=== PATIENT | female | born 1970 | race Caucasian/White ===

== ENCOUNTER → 2019-09-26 | Outpatient (CLI) | payer OTHER ==
--- NOTE | 2019-10-09 09:49 | MM ---
Reason for exam: screening (asymptomatic). Last mammogram was performed 2 years and 3 months ago. History: Patient is postmenopausal. Benign excisional biopsy of the right breast, 2013. Took hormonal contraceptives for 10 years. Physical Findings: A clinical breast exam by your physician is recommended on an annual basis and results should be correlated with mammographic findings. MG Screening Mammo w CAD Bilateral CC and MLO view(s) were taken. Prior study comparison: June 20, 2017, mammogram, performed at [facility]. July 19, 2014, mammogram, performed at [facility]. The breast tissue is heterogeneously dense. This may lower the sensitivity of mammography. There are benign appearing round calcifications bilaterally. Previous mammotome biopsy in the right breast. There is no discrete abnormality. ASSESSMENT: Benign, BI-RAD 2 RECOMMENDATION: Routine screening mammogram of both breasts in 1 year.
== END | disposition home or self-care (01) ==
LOC: RADMAMWWP 15:26
PROVIDERS: ATTEND Obstetrics & Gynecology
DX: Z12.31 Encounter for screening mammogram for malignant neoplasm of breast (principal)
CPT/HCPCS: 77067

== ENCOUNTER 2021-11-13 10:56 | Day surgery (SDC) | payer OTHER ==
[2021-11-11 12:02] VITALS: BMI 25.1
[~2021-11-13 10:56] MED LIST: ALBUTEROL NEB (CONC) 2.5 MG/0.5 ML INHALATION ONE; LACTATED RINGERS 1,000 ML IV SCH; LIDOCAINE 2% (PF) 20 MG/ML 5 ML VIAL INHALATION ONE; LIDOCAINE VISCOUS 300 MG/15 ML CUP MUCOUS MEM ONE; SODIUM CHLORIDE 0.9% 1,000 ML IV SCH
--- NOTE | 2021-11-13 12:16 | CT ---
EXAMINATION TYPE: CT Chest randa Treadwell Protocol DATE OF EXAM: 11/13/2021 COMPARISON: 10/18/2021 HISTORY: NAVIGATIONAL BRONCHOSCOPY. CT DLP: 484 mGycm Automated exposure control for dose reduction was used. FINDINGS: There is a 2.5 x 2.5 cm right upper lobe lung mass. Margins are spiculated and highly suggestive of m alignant adjacent groundglass changes may represent reactive pneumonitis. Subpleural 8 mm nodule post erior segment right upper lobe may be inflammatory. Additional subpleural nodule left upper lobe alexis uring 8 mm also more likely postinflammatory. Appears to extend into an area of consolidation left alberto ng base. No pleural effusion. No pneumothorax. Previously noted pulmonary emboli are not going to be seen well by noncontrast technique. Heart is en larged. 2.6 x 1.9 cm right paratracheal lymph node again noted. Subcarinal fullness also suggested. M easures approximately 2 cm in short axis. Heart size is stable there is no sizable pericardial effusion. Right ventricular dilation suggested. Hypertrophic and degenerative changes of the spine. No definite osseous defects are seen. IMPRESSION: 1. 2.5 cm right upper lobe mass highly suspicious for malignancy with associated adenopathy. 2. Subpleural nodularity most likely is inflammatory related with CT scan as clinically warranted.
[2021-11-13] MEDS ORDERED: fentaNYL (PF) 50 MCG/ML 2 ML AMP ONE (12:30)
[2021-11-13] MEDS ORDERED: ONDANSETRON 4 MG/2 ML VIAL ONE (12:30)
[2021-11-13] MEDS ORDERED: ROCURONIUM 10 MG/ML (5 ML VIAL) IV ONE (12:30)
[2021-11-13] MEDS ORDERED: LIDOCAINE 1% INJ 10MG/ML (20 ML MDV) ONE (12:30)
[2021-11-13] MEDS ORDERED: GLYCOPYRROLATE 0.2 MG/ML 2 ML VIAL ONE (12:30)
[2021-11-13] MEDS ORDERED: PROPOFOL 10 MG/ML 20 ML VIAL IV ONE (12:30)
[2021-11-13] MEDS ORDERED: MIDAZOLAM 2 MG/2 ML VIAL ONE (12:30)
[2021-11-13] MEDS ORDERED: NEOSTIGMINE 1 MG/ML 10 ML VIAL ONE (12:30)
--- NOTE | 2021-11-13 13:21 | P.PCN ---
Date of Procedure: 11/13/21 Operative Findings: Operative Findings: 1 right upper lobe mass 2 Right hilar / subcarinal lymphadenopathy Postoperative Diagnosis: 1 right upper lobe mass 2 Right hilar/subcarinal lymphadenopathy Procedure(s) Performed: 1 flexible bronchoscopy, airway inspection 2 navigation bronchoscopy, transbronchial biopsy and transbronchial brushing and transbronchial needle aspirate of a right upper lobe mass, bronchial alveolar lavage of the right upper lobe 2 endoscopic ultrasound (EBUS) 3 transbronchial needle aspirate of station station 7 Surgeon: Charisma Roca Song Lyricist #1: Shelli Christopher Estimated Blood Loss (ml): 5 cc Pathology: TBBX of the right upper lobe, transbronchial needle aspirate of sta tion 7 Condition: stable Disposition: same day Operative Findings: The patient had a preoperative computed tomography scan of the chest using the Veran protocol. The CAT scan images were reviewed. The right upper lobe opacity was identified it was mapped appropriately. The CAT scan images are uploaded into a USB and then into the [employer] tower. After obtaining the consent the patient was taken to the OR suite he was intubated and put on mechanical ventilation by anesthesia then the scope was advanced to the ET tube until the Trachea was seen and it was normal and then the susana appears normal then the scope advanced to the left main and JAMEL LB1- LB3 were seen and no endobronchial lesions were seen then the scope advanced to the lingula and the LB4 and LB5 were seen and no endobronchial lesions were seen the scope retracted and advanced to the left lower lobes LB6 to LB12 were seen one by one and no endobronchial lesions, then the scope was retracted back to the susana and advanced to the Right main and RUL RB1 and RB2 and RB3 were seen one by one and no endobronchial lesions were seen the scope, however, the segment of the posterior right upper lobe bronchus were atelectatic and narrowed and extrinsically compressed. The bronchoscope was then retracted and advanced to the BI and RML RB4 and RB5 were seen and no endobronchial lesions were seen then it was retracted and advanced to the RLL RB6 to RB12 were seen one by one and no endobronchial lesions. Navigation bronchoscopy was performed. The main susana and the secondary susana on the left were used as the reference points and appropriate calibration was done. Following that, using a navigation guidance , the bronchoscope was advanced to the right upper lobe posterior segment and various transbronchial biopsies of the right upper lobe opacity was done without any complications. Minimal endobronchial bleeding was encountered. Following that, and navigation guided transbronchial brushing and needle aspirate of the right upper lobe mass was done. Subsequently, a bronchioalveolar for lavage (BAL) of the right upper lobe O2 sat was done. A total of 80 mL of fluid was infused and 20 mL was suctioned back and this will be sent for cytology and microbial cultures. Then EBUS was used and the lymph nodes were examined. Direct measurement of the mediastinal lymph nodes revealed station 4R lymph node measuring 17x 18 mm in size, station 10 R lymph node measuring 14 x 11 mm in size and a subcarinal lymph node station 7 measuring 34 x 27 mm in size. On the EBUS guidance, transbronchial needle aspirate of the subcarinal lymph node station 7 was done with a total of 5 passes. The adequacy of the samples was confirmed by pathology at the bedside. No major bleeding and the scope was removed and taken out in total the patient was send to the floor in stable condition. The adequacy of the temporal confirmed by pathology at the bedside and the rest of the samples were sent and the cell block. The bronchoscope was removed, the patient will be extubated and then transferred to recovery. A follow-up chest x-ray will be done in recovery.
[2021-11-13] MEDS ORDERED: LACTATED RINGERS 1,000 ML IV ONE ×2 (13:26)
[2021-11-13 13:34] VITALS: TEMP 98.1
[2021-11-13 13:43] VITALS: RESP 16
--- NOTE | 2021-11-13 14:00 | XR ---
EXAMINATION TYPE: XR chest 1V DATE OF EXAM: 11/13/2021 COMPARISON: CT thorax October 18, 2021 HISTORY: Postbronchoscopy. TECHNIQUE: Single AP portable frontal upright view of the chest is obtained. FINDINGS: There is background chronic emphysematous change with persistent right upper lung mass. No pneumothorax seen after bronchoscopy. Left lung is clear. The cardiac silhouette size remains withi n normal limits. Underlying scoliosis redemonstrated. There is a new IVC filter over the right L3 lev el partially imaged. IMPRESSION: As above
[2021-11-13 14:23] VITALS: BP 113/73; PULSE 90
[2021-11-13 23:28] LABS: Appearance,BF Bloody
== END 2021-11-13 14:32 | disposition home or self-care (01) ==
LOC: ORWHC2ENDO 10:56
PROVIDERS: ATTEND Internal Medicine Critical Care Medicine
DX: R59.1 Generalized enlarged lymph nodes (principal); Z86.73 Personal history of transient ischemic attack (TIA), and cerebral infarction without residual deficits; Z79.01 Long term (current) use of anticoagulants
CPT/HCPCS: 31625; 31627; 31652; 89050; 87252; 87070; 87205; 87116; 87102; 87206; 71045; 71250; J2250; J2710; J2405; J2001; J3010; J2704; 87496; 87498; 87502; 87529; 87634; 87798

== ENCOUNTER → 2022-02-22 | Outpatient (CLI) | payer OTHER ==
--- NOTE | 2022-02-22 12:58 | CT ---
EXAMINATION TYPE: CT chest w con DATE OF EXAM: 02/22/2022 COMPARISON: 11/25/2021 HISTORY: 51-year-old female Malignant neoplasm of right upper lobe. TECHNIQUE: Contiguous axial scanning of the chest after the administration of 70ml mL of Isovue 300. Coronal/sagittal reconstructions performed. CT DLP: 146.5mGycm. Automatic exposure control utilized for a dose reduction. FINDINGS: Heart normal size without pericardial effusion. No flattening of the interventricular septum or reflu x of contrast into the hepatic veins. Aorta normal caliber with bovine configuration to the aortic arch. No thoracic lymphadenopathy by CT size criteria. The previous subcarinal and right paratracheal lymph adenopathy has resolved. Previous right supraclavicular adenopathy and right anterior mediastinal sof t tissue has resolved. However, there are new visualized multiple segmental branch pulmonary emboli to the right lower lobe and one to the segmental branch of the left lower lobe. Patient's posterior right upper lobe mass is 2.2 cm versus 3.0 cm, previously. Some strandy and patch y subpleural areas of probable atelectasis are noted. No pleural effusion. Visualized upper abdomen shows no gross abnormality. Bones: Some degenerative change near the thoracolumbar junction. Anterior endplate spondylosis upper thoracic spine with accentuated upper thoracic kyphosis. IMPRESSION: 1. Interval development of acute pulmonary emboli to multiple segmental branches of the right lower l obe. At least one segmental branch embolus to the left lower lobe. No evidence for right heart strain . Mild overall burden. 2. Interval treatment response. The patient's right upper lobe mass is smaller at 2.2 cm versus 3.0 c m, previously. Interval resolution of the previous mediastinal and right supraclavicular lymphadenopa thy. Findings called to Dr. Kelly at 12:50 PM. We are informed that the patient has known PEs per a recent outside CT exam and is currently on treatment.
== END | disposition home or self-care (01) ==
LOC: RADCTMAIN 10:06
PROVIDERS: ATTEND Internal Medicine Hematology & Oncology
DX: C34.11 Malignant neoplasm of upper lobe, right bronchus or lung (principal)
CPT/HCPCS: 82565; 84520; 71260; 36415; Q9967

== ENCOUNTER → 2022-07-16 | Outpatient (CLI) | payer OTHER ==
--- NOTE | 2022-07-19 06:52 | PE ---
EXAMINATION TYPE: PET CT fusion skull to thigh DATE OF EXAM: 07/16/2022 COMPARISON: Outside PET/CT November 25, 2021 HISTORY: Lung cancer progress study. Originally diagnosed in October completed radiation treatment in [facility] and chemotherapy in January. TECHNIQUE: Following the intravenous administration of 8.63 mCi of F-18 FDG, whole body images are p erformed from the skull base to the midthigh. Images are reviewed on the computer in the coronal, ax ial, and sagittal planes. Reconstructed rotating images are created on independent workstation and r eviewed on the computer. A localization and attenuation correction CT is performed in conjunction w ith the PET scan. Blood glucose level equals 82. SCAN: Subsequent Scan FINDINGS: SKULL BASE AND NECK: Mild residual abnormal hypermetabolic uptake corresponding to prior enlarged hy permetabolic lymph node right neck at level of thyroid gland axial image 58. Subcentimeter lymph node now seen. Max SUV is 2.42 versus 4.81 stated on prior outside report. No new areas of abnormal hypermetabolic uptake. CHEST, MEDIASTINUM, AND HILAR REGION: There are areas of new consolidation with air bronchograms exte nding from the right hilum superiorly and inferiorly. Mild hypermetabolic uptake along the superior p ortion is seen, max SUV is 3.93 on axial image 65. Post inflammatory response should be considered. A cute infectious processes would be favored given times since most recent treatment. Peripheral reticulated hypermetabolic mass in the right upper lobe now not clearly identified on curr ent study. No abnormal enlarged or hypermetabolic right paratracheal or subcarinal or right hilar lym ph nodes on current study. No new areas of abnormal hypermetabolic uptake. ABDOMEN AND PELVIS: No new areas of abnormal hypermetabolic uptake. OSSEOUS STRUCTURES: No new areas of abnormal hypermetabolic uptake. OTHER CT: Some new dependent fluid right maxillary sinus axial image 23, correlate clinically to excl ude acute maxillary sinusitis. Gallbladder has distended margins. Infrarenal IVC filter is redemonstrated. Levoconvex scoliosis in t he lumbar spine again seen. IMPRESSION: Marked positive suspected complete positive treatment response as detailed above. Possibl e new acute infectious process versus posttreatment response right mid lung extending superiorly and anteriorly.
== END | disposition home or self-care (01) ==
LOC: RADPETMAIN 10:57
PROVIDERS: ATTEND Internal Medicine Hematology & Oncology
DX: C34.11 Malignant neoplasm of upper lobe, right bronchus or lung (principal); Z92.3 Personal history of irradiation
CPT/HCPCS: 78815; A9552

== ENCOUNTER → 2022-10-13 | Outpatient (CLI) | payer BC ==
--- NOTE | 2022-10-13 15:17 | USB ---
Reason for Exam: Additional evaluation requested from abnormal screening. Patient History: Menarche at age 13. First Full-Term at age 28. Postmenopausal. Patient used Hormonal Contraceptives for 10 years. 2013, Benign Excisional Biopsy on the right side. Risk Values: Sofia 5 year model risk: 1.3%. NCI Lifetime model risk: 10.1%. Technique: Method: Whole Breast Handheld. Prior Study Comparison: 06/20/2017 Screening Mammogram, [facility]. 09/26/2019 Bilateral Screening Mammogram, [facility]. 10/11/2022 Bilateral MG screening mammo w CAD, [facility]. Findings: The whole breast of both breasts, the axilla of both breasts and the retroareolar of both breasts were scanned. A complete US of all four quadrants of both breasts, axilla, and retro-areolar region were reviewed. Dense tissue is present throughout. No solid or cystic masses are identified. No axillary lymphadenopathy. Overall Assessment: Suspicious, BI-RAD 4 Management: Stereotactic Core Biopsy of the right breast. Progressively increasing upper outer quadrant amorphous calcifications. Note that these are bilateral calcifications. Unilateral biopsy can be performed given the similar morphology on both sides. Results were given to the patient verbally at the time of exam. Electronically signed and approved by: Kacie Golden M.D. Radiologist
--- NOTE | 2022-10-13 15:20 | MM ---
Reason for Exam: Additional evaluation requested from abnormal screening. Last screening mammogram was performed less than 1 month ago. Patient History: Menarche at age 13. First Full-Term at age 28. Postmenopausal. Patient used Hormonal Contraceptives for 10 years. 2013, Benign Excisional Biopsy on the right side. Risk Values: Sofia 5 year model risk: 1.3%. NCI Lifetime model risk: 10.1%. Prior Study Comparison: 06/20/2017 Screening Mammogram, [facility]. 09/26/2019 Bilateral Screening Mammogram, [facility]. 10/11/2022 Bilateral MG screening mammo w CAD, [facility]. Tissue Density: The breast tissue is heterogeneously dense. This may lower the sensitivity of mammography. Findings: Analyzed By CAD. Extensive, progressively increasing bilateral upper outer quadrant microcalcifications show amorphous morphology. There are more on the right side. Tissue sampling is recommended to demonstrate a benign etiology. Consider unilateral sampling as the left-sided calcifications have the same morphology. Right-sided lower quadrant microclip from prior biopsy. Overall Assessment: Incomplete: need additional imaging evaluation, BI-RAD 0 Management: Diagnostic Breast Ultrasound of both breasts. Electronically signed and approved by: Kacie Golden M.D. Radiologist
== END | disposition home or self-care (01) ==
LOC: RADMAMWWP 13:44
PROVIDERS: ATTEND Internal Medicine
DX: R92.8 Other abnormal and inconclusive findings on diagnostic imaging of breast (principal); Z78.0 Asymptomatic menopausal state
CPT/HCPCS: 77066

== ENCOUNTER → 2022-10-25 | Day surgery (SDC) | payer BC ==
[2022-10-25 07:51] VITALS: RESP 16; TEMP 98.1
[2022-10-25 08:30] VITALS: BP 99/62; PULSE 85
--- NOTE | 2022-10-28 14:48 | MM ---
Risk Values: Sofia 5 year model risk: 1.3%. NCI Lifetime model risk: 10.1%. Prior Study Comparison: 09/26/2019 Bilateral Screening Mammogram, [facility]. 10/11/2022 Bilateral MG screening mammo w CAD, [facility]. 10/13/2022 Bilateral MG work up mamm w CAD BILAT, [facility]. Pathology Description: Marker Left Behind. Approach: CC FA Needle Type: Eviva Cores: 7 Skin Nicks: 1 Gauge: 9 no problems The calcifications in question within the right breast were targeted by the undersigned. Procedure was performed by the undersigned. Informed consent was obtained and all of the patients questions were answered. The standard sterile technique was utilized and appropriate local anesthesia was obtained with 1% lidocaine. Mammotome probe was advanced and multiple core samples were obtained and sent to pathology for interpretation. Microclip marker was deployed at the site of biopsy. Post procedural mammogram demonstrates appropriate deployment of radiopaque clip marker. The patient tolerated the procedure well and left the department in stable condition. Pathology results are pending. Impression: Successful stereotactic core biopsy right breast. Pathology Results: Result: Benign, Fibrocystic change. RIGHT BREAST, STEREOTACTIC NEEDLE CORE BIOPSY: Fibrocystic changes including sclerosing adenosis with microcalcifications. Overall Assessment: Benign Management: Diagnostic Mammogram of the right breast in 6 months. Electronically signed and approved by: Luiz Corral M.D. Radiologis
== END ==
LOC: RADMAMWWP 07:37
PROVIDERS: ATTEND Internal Medicine
DX: N60.21 Fibroadenosis of right breast (principal)
CPT/HCPCS: 88305; 19081; A4648; J2001

== ENCOUNTER → 2023-01-14 | Outpatient (CLI) | payer BC ==
--- NOTE | 2023-01-15 07:51 | PE ---
EXAMINATION TYPE: PET CT fusion skull to thigh DATE OF EXAM: 01/14/2023 CLINICAL INDICATION:Female, 52 years old with history of C34.11; TECHNIQUE: Following the intravenous administration of 11.75 mCi of F-18 FDG, whole body images are performed from the skull base to the midthigh. Images are reviewed on the computer in the coronal, a xial, and sagittal planes. Reconstructed rotating images are created on independent workstation and reviewed on the computer. A non-contrast CT is performed in conjunction with the PET scan. Glucose level 84 mg/dL COMPARISON: CT 02/23/2020, PET/CT 07/19/2022, FINDINGS: Mediastinal SUV mean is 1.5. Hepatic parenchyma SUV mean is 2.45. SKULL BASE AND NECK: No suspicious radiotracer activity. CHEST, MEDIASTINUM, AND HILAR REGION: * No suspicious radiotracer activity. * Posttreatment changes to the right upper lung with consolidation bronchiectasis extending superior ly as well as in the right lower lung with consolidation changes. These have similar morphology when comparing to prior on 07/16/2022 with decrease in airspace opacities in the right upper lung in today 's exam. Left lateral peripheral nodular densities seen on prior are not significantly changed in siz e. * Right lower lung peripheral nodular density measuring 7 mm Max SUV 0.7 this is favored represent a telectasis. ABDOMEN AND PELVIS: No suspicious radiotracer activity. OSSEOUS STRUCTURES: No suspicious radiotracer activity. OTHER CT: Atherosclerosis of the arterial vasculature. IVC filter present. Few scattered colonic dive rticula. IMPRESSION: No suspicious radiotracer activity. Posttreatment changes without evidence for recurrence.
== END | disposition home or self-care (01) ==
LOC: RADPETMAIN 09:56
PROVIDERS: ATTEND Internal Medicine Critical Care Medicine
DX: C34.11 Malignant neoplasm of upper lobe, right bronchus or lung (principal)
CPT/HCPCS: 78815; A9552

== ENCOUNTER → 2023-07-28 | Outpatient (CLI) | payer BC ==
--- NOTE | 2023-08-01 22:22 | PE ---
EXAMINATION TYPE: PET CT fusion skull to thigh DATE OF EXAM: 07/28/2023 COMPARISON: None Prior PET/CT: 01/14/2023 HISTORY: Lung cancer TECHNIQUE: Following the intravenous administration of 9.45 mCi of F-18 FDG, whole body images are p erformed from the skull base to the midthigh. Images are reviewed on the computer in the coronal, ax ial, and sagittal planes. Reconstructed rotating images are created on independent workstation and r eviewed on the computer. A localization and attenuation correction CT is performed in conjunction w ith the PET scan. DLP: 149.5 mGycm SCAN: Subsequent Blood glucose: 80 mg/dL Average Mediastinum SUV: 2.25 Average Liver SUV: 3.22 FINDINGS: NECK: Mild uptake within the bilateral tonsillar pillars is present. This could be inflammatory agustin ge. SUV is somewhat elevated at 5.07 left tonsillar pillar, image 34 follow-up can be performed. Prev ious SUV 1.41. There is a small focal area of increased uptake posterior to the right submandibular gland, image 40, SUV 3.58. Small metastatic lymph node is not excluded. Previous SUV 1.15. There is a lymph node with mild uptake measuring 3.55 SUV, image 56). THORAX: There is mild diffuse uptake within the right lung mass. SUV value is 2.12, example image 73. Previous SUV 1.25 No suspicious mediastinal or hilar lymph nodes are identified. ABDOMEN: No abnormal uptake PELVIS: No abnormal uptake OSSEOUS STRUCTURES: There is some focal uptake within the anterior left lower rib costochondral junct ion, image 113. Metastasis and inflammatory changes or injury could be considered. LOCALIZATION CT: Streak opacity remains present at the right apex. Minimal pericardial effusion is pr esent. The most mid and inferior vena cava filter COMPARISON: Uptake appears to have a similar distribution to the comparison. SUV uptake however is di minished over the interval IMPRESSION: 1. Mild diffuse uptake within the posttreated right apical mass mild uptake within a nodule posterior to the right submandibular gland. Uptake is increasing slowly. 2. Costochondral uptake within an anterior mid left rib could be posttraumatic, inflammatory, or meta static in nature. 3. Uptake within the tonsillar pillars increasing from comparison. This is nonspecific.
== END | disposition home or self-care (01) ==
LOC: RADPETMAIN 10:21
PROVIDERS: ATTEND Internal Medicine Hematology & Oncology
DX: C34.11 Malignant neoplasm of upper lobe, right bronchus or lung (principal); R22.0 Localized swelling, mass and lump, head
CPT/HCPCS: 78815; A9552

== ENCOUNTER → 2023-08-02 | Outpatient (CLI) | payer BC ==
--- NOTE | 2023-08-03 12:21 | CA ---
Transthoracic Echo Report Name: Barbra Ramirez Age: 52 Gender: F : 1970 Exam Date: 08/02/2023 12:50 Exam Location: [facility] Ht (in): 63 Wt (lb): 108 Ordering Physician: Kiara Kelly MD Attending/Referring Phys: Business Objects Architect Kathy Guzman RDCS Procedure CPT: Indications: Z01.818 Chemo Cardiac Hx: Technical Quality: Fair Contrast 1: Total Dose (mL): Contrast 2: Total Dose (mL): MEASUREMENTS (Male / Female) Normal Values 2D ECHO LV Diastolic Diameter PLAX 4.1 cm 4.2 - 5.9 / 3.9 - 5.3 cm LV Systolic Diameter PLAX 3.1 cm IVS Diastolic Thickness 0.8 cm 0.6 - 1.0 / 0.6 - 0.9 cm LVPW Diastolic Thickness 0.9 cm 0.6 - 1.0 / 0.6 - 0.9 cm LV Relative Wall Thickness 0.4 LV Diastolic Volume MOD BP 61.2 cm??? 67 - 155 / 56 - 104 cm??? LV Systolic Volume MOD BP 27.7 cm??? 22 - 58 / 19 - 49 cm??? LV Ejection Fraction MOD BP 54.8 % >= 55 % LV Cardiac Index MOD BP 2055.1 cm???/min???m??? LV Diastolic Volume MOD 4C 62.1 cm??? LV Systolic Volume MOD 4C 27.3 cm??? LV Ejection Fraction MOD 4C 56.0 % LV Cardiac Index MOD 4C 2127.5 cm???/min???m??? LV Diastolic Length 4C 7.6 cm LV Systolic Length 4C 6.3 cm LV Diastolic Volume MOD 2C 60.2 cm??? LV Systolic Volume MOD 2C 24.9 cm??? LV Ejection Fraction MOD 2C 58.5 % LV Cardiac Index MOD 2C 2154.9 cm???/min???m??? LV Diastolic Length 2C 7.6 cm LV Systolic Length 2C 5.5 cm LA Volume 28.2 cm??? 18 - 58 / 22 - 52 cm??? LA Volume Index 19.2 cm???/m??? 16 - 28 cm???/m??? M-MODE Aortic Root Diameter MM 2.5 cm LA Systolic Diameter MM 2.4 cm LA Ao Ratio MM 1.0 AV Cusp Separation MM 2.0 cm DOPPLER AV Peak Velocity 132.2 cm/s AV Peak Gradient 7.0 mmHg AV Mean Velocity 99.7 cm/s AV Mean Gradient 4.3 mmHg AV Velocity Time Integral 26.9 cm LVOT Peak Velocity 107.8 cm/s LVOT Peak Gradient 4.7 mmHg LVOT Velocity Time Integral 20.4 cm MV Area PHT 6.6 cm??? Mitral E Point Velocity 85.0 cm/s Mitral A Point Velocity 70.5 cm/s Mitral E to A Ratio 1.2 MV Deceleration Time 115.1 ms MV E' Velocity 8.7 cm/s Mitral E to MV E' Ratio 9.8 TR Peak Velocity 236.6 cm/s TR Peak Gradient 22.4 mmHg Right Ventricular Systolic Press 26.5 mmHg FINDINGS Left Ventricle Left ventricular cavity size normal. Left ventricular wall thickness normal. No obvious regional wall motion abnormalities. Left ventricular ejection fraction is estimated at 55 %. Right Ventricle Normal right ventricular size and function. Right ventricular systolic pressure within normal limits. Right Atrium Normal right atrial size. Left Atrium Normal left atrial size. Mitral Valve Structurally normal mitral valve. No mitral stenosis, regurgitation or prolapse. Aortic Valve Trileaflet aortic valve. No aortic valve stenosis or regurgitation. Tricuspid Valve Structurally normal tricuspid valve. Mild tricuspid regurgitation. Pulmonic Valve Trace pulmonic regurgitation. Pericardium Minimal pericardial effusion (normal variant). Aorta Normal size aortic root and proximal ascending aorta. CONCLUSIONS Normal LV size and systolic function. No significant abnormality in the Doppler exam. No pulmonary hypertension. Small pericardial effusion Previewed by: Dr. Ana Marquez MD (Electronically Signed) Final Date: 03 August 2023 12:20
== END | disposition home or self-care (01) ==
LOC: RADECHMAIN 11:55
PROVIDERS: ATTEND Internal Medicine Hematology & Oncology
DX: Z01.818 Encounter for other preprocedural examination (principal); I31.39 Other pericardial effusion (noninflammatory); C34.11 Malignant neoplasm of upper lobe, right bronchus or lung; I26.99 Other pulmonary embolism without acute cor pulmonale; I82.403 Acute embolism and thrombosis of unspecified deep veins of lower extremity, bilateral
CPT/HCPCS: 93306

== ENCOUNTER → 2023-10-19 | Outpatient (CLI) | payer BC ==
--- NOTE | 2023-10-19 11:13 | MM ---
Reason for Exam: Additional evaluation requested from prior study. Last screening mammogram was performed 12 month(s) ago. Patient History: Menarche at age 13. First Full-Term at age 28. Postmenopausal. Patient has history of breast feeding. Patient used Hormonal Contraceptives for 10 years. 10/25/2022, Benign MG stereo VAD BX RT on the right side. 2013, Benign Excisional Biopsy on the right side. Risk Values: Sofia 5 year model risk: 1.7%. NCI Lifetime model risk: 12.4%. Prior Study Comparison: 06/20/2017 Screening Mammogram, [facility]. 09/26/2019 Bilateral Screening Mammogram, [facility]. 10/11/2022 Bilateral MG screening mammo w CAD, [facility]. 10/13/2022 Bilateral MG work up mamm w CAD BILAT, [facility]. Tissue Density: The breasts are heterogeneously dense, which may obscure small masses. Findings: Analyzed By CAD. Right breast biopsy clips. Stable benign-appearing calcific patient's bilaterally, no new suspicious mass. No new suspicious masses, calcifications or distortions. Overall Assessment: Benign, BI-RAD 2 Management: Screening Mammogram of both breasts in 1 year. Results were given to the patient verbally at the time of exam. Patient should continue monthly self-breast exams. A clinical breast exam by your physician is recommended on an annual basis. This exam should not preclude additional follow-up of suspicious palpable abnormalities. Note on Sofia scores and lifetime risk: 1. A Sofia score greater than 3% is considered moderate risk. If this is the case, consider specialist referral to assess eligibility for a risk reducing agent. 2. If overall lifetime risk for the development of breast cancer is 20% or higher, the patient may qualify for future screening with alternating mammogram and breast MRI. Electronically signed and approved by: Yoan Robin DO
== END | disposition home or self-care (01) ==
LOC: RADMAMWWP 10:40
PROVIDERS: ATTEND Internal Medicine
DX: R92.333 Mammographic heterogeneous density, bilateral breasts (principal); Z78.0 Asymptomatic menopausal state
CPT/HCPCS: 77062; 77066

== ENCOUNTER → 2023-12-18 | Outpatient (CLI) | payer BC ==
--- NOTE | 2023-12-20 22:55 | PE ---
EXAMINATION TYPE: PET CT fusion skull to thigh DATE OF EXAM: 12/18/2023 CLINICAL INDICATION:Female, 53 years old with history of C34.11 LUNG CANCER; TECHNIQUE: Following the intravenous administration of 12.39 mCi of F-18 FDG, whole body images are performed from the skull base to the midthigh. Images are reviewed on the computer in the coronal, axial, and sagittal planes. Reconstructed rotating images are created on independent workstation and reviewed on the computer. A non-contrast CT is performed in conjunction with the PET scan. Glucose level 89 mg/dL CT DLP: 206.4 mGycm, Automated exposure control for dose reduction was used. COMPARISON: CT None, PET/CT 07/20/2023, FINDINGS: Mediastinal SUV mean is 1.7. Hepatic parenchyma SUV mean is 2.5. SKULL BASE AND NECK: No suspicious radiotracer activity. CHEST, MEDIASTINUM, AND HILAR REGION: * No suspicious radiotracer activity. * Posttreatment to the right upper lung with consolidation bronchiectasis extending superiorly. Righ t lower lung most treatment changes with consolidation also present.. These have similar morphology w hen comparing to prior on 07/16/2022 with decrease in airspace opacities in the right upper lung in t kerry's exam. Left lateral peripheral nodular densities seen on prior are not significantly changed in size. * Right lower lung peripheral nodular density is not significantly changed and likely represents ate lectasis. ABDOMEN AND PELVIS: No suspicious radiotracer activity. OSSEOUS STRUCTURES: No suspicious radiotracer activity. OTHER CT: Atherosclerosis of the arterial vasculature. IVC filter present. Few scattered colonic dive rticula. IMPRESSION: No suspicious radiotracer activity. Posttreatment changes without evidence for recurrence.
== END | disposition home or self-care (01) ==
LOC: RADPETMAIN 12:46
PROVIDERS: ATTEND Internal Medicine Hematology & Oncology
DX: C34.11 Malignant neoplasm of upper lobe, right bronchus or lung (principal)
CPT/HCPCS: 78815; A9552

== ENCOUNTER → 2024-07-04 | Outpatient (CLI) | payer BC ==
--- NOTE | 2024-07-04 15:04 | CT ---
EXAMINATION TYPE: CT chest w con DATE OF EXAM: 07/04/2024 2:41 PM COMPARISON: None. CLINICAL INDICATION: Female, 53 years old with history of C34.11 MALIGNANT NEOPLASM OF UPPER LOBE, RI GHT BRO, lung ca TECHNIQUE: Axial images were obtained at 5 mm thick sections. Reconstructed images are reviewed on [employer] computer in the coronal plane. Contrast used:100 mL of Isovue 300 with IV Contrast, (none if empty) Oral contrast used: (none if empty) CT DLP: 110.1 mGycm, Automated exposure control for dose reduction was used. FINDINGS: Portion of the thyroid visualized is normal. There is a streak opacity extending through the posterior right apex. Finding could be compatible wit h patient's neoplasm. Soft tissue densities in the right infrahilar region. Consolidations in the per ihilar region. No enlarged mediastinal or hilar adenopathy is evident. The ascending aorta diameter at the level o f the main pulmonary artery is 2.4 cm. The main pulmonary artery diameter at the bifurcation is 2.5 cm. Correlate for pulmonary hypertension Limited CT sections are obtained through the upper abdomen. Abdomen is essentially unremarkable. IMPRESSION: 1. Right upper lobe streaky density with infrahilar consolidation soft tissue can be compatible with patient's reported lung cancer. Findings are unchanged from the comparison [facility], Workstation: [facility], 07/04/2024 3:02 PM
== END | disposition home or self-care (01) ==
LOC: RADCTMAIN 14:10
PROVIDERS: ATTEND Internal Medicine Hematology & Oncology
DX: C34.11 Malignant neoplasm of upper lobe, right bronchus or lung (principal); I26.99 Other pulmonary embolism without acute cor pulmonale; I82.5Z9 Chronic embolism and thrombosis of unspecified deep veins of unspecified distal lower extremity; J98.4 Other disorders of lung; I27.20 Pulmonary hypertension, unspecified
CPT/HCPCS: 71260; Q9967

== ENCOUNTER → 2024-11-30 | Outpatient (CLI) | payer BC ==
--- NOTE | 2024-11-30 15:05 | MM ---
Reason for Exam: Screening (asymptomatic). Last mammogram was performed 1 year(s) and 2 month(s) ago. Patient History: Menarche at age 13. First Full-Term at age 28. Postmenopausal. Patient has history of breast feeding. Patient used Hormonal Contraceptives for 10 years. 10/25/2022, Benign MG stereo VAD BX RT on the right side. 2013, Benign Excisional Biopsy on the right side. Risk Values: Sofia 5 year model risk: 1.8%. NCI Lifetime model risk: 12.2%. Prior Study Comparison: 10/11/2022 Bilateral MG screening mammo w CAD, [facility]. 10/13/2022 Bilateral MG work up mamm w CAD [place], [facility]. 10/19/2023 Bilateral MG 3D diag mammo w/cad [place], [facility]. Tissue Density: The breasts are heterogeneously dense, which may obscure small masses. Findings: Analyzed By CAD. There are mammotome biopsy clips in the right breast redemonstrated. A 7 mm focal asymmetric density in the left breast middle depth is more prominent versus prior studies. Asymmetric tissue versus developing lesion. Overall Assessment: Incomplete: need additional imaging evaluation, BI-RAD 0 Management: Special View Mammogram of the left breast. Advise spot 3-D and 3-D true lateral views left breast. Patient should continue monthly self-breast exams. A clinical breast exam by your physician is recommended on an annual basis. This exam should not preclude additional follow-up of suspicious palpable abnormalities. Note on Sofia scores and lifetime risk: 1. A Sofia score greater than 3% is considered moderate risk. If this is the case, consider specialist referral to assess eligibility for a risk reducing agent. 2. If overall lifetime risk for the development of breast cancer is 20% or higher, the patient may qualify for future screening with alternating mammogram and breast MRI. [facility], , 11/30/2024 3:02 PM. Electronically signed and approved by: Carter Lee M.D.
--- NOTE | 2024-11-30 15:15 | BD ---
EXAMINATION TYPE: Axial Bone Density DATE OF EXAM: 11/30/2024 CLINICAL HISTORY: 54 years old Female. ICD-10 CODE: N95.8 MENOPAUSAL AND PERIMENOPAUSE , Additional History: Height: 62 Weight: 115 FRAX RISK QUESTIONS: Alcohol (3 or more units per day): no Family History (Parent hip fracture): no Glucocorticoids (More than 3mos): no (Ex: prednisone, prednisolone, methylprednisolone, dexamethasone, and hydrocortisone). History of Fracture in Adulthood: no Secondary Osteoporosis: 1. Type 1 Diabetes: no 2. Hyperthyroidism: no 3. Menopause before 45: no 4. Malnutrition: no 5. Chronic liver disease: no Rheumatoid Arthritis: no Current Tobacco Use: no RISK FACTORS HISTORY OF: Surgery to Spine/Hip(right/left)/Wrist (right/left): no EXAM MEASUREMENTS: Bone mineral densitometry was performed using the [employer] System. Bone mineral density as measured about the Lumbar spine is: ----- L1-L4(G/cm2): 0.875 T Score Values are as follows: ----- L1: -2.8 ----- L2: -2.4 ----- L3: -2.4 ----- L4: -2.6 ----- L1-L4: -2.5 Z Score Values are as follows: ----- L1: -1.6 ----- L2: -1.2 ----- L3: -1.2 ----- L4: -1.4 ----- L1-L4: -1.3 Bone mineral density has: decreased -15.7 % since study of: 10.11.2022 Bone mineral density about the R hip (g/cm2): 0.683 Bone mineral density about the L hip (g/cm2): 0.633 T Score values are as follows: -----R Neck: -2.7 -----L Neck: -2.6 -----R Total: -2.6 -----L Total: -3.0 Z Score values are as follows: -----R Neck: -1.4 -----L Neck: -1.3 -----R Total: -1.6 -----L Total: -2.0 Bone mineral density has: decreased -5.4 % since study of: 3.13.2022 FRAX%s: The graph provided illustrates a 9.2% chance for a major osteoporotic fx and a 2.1% chance fo r the hips probability for fx in 10 years time. IMPRESSION: Osteoporosis (T Score less than -2.5) in both hips is now present. There is increased fracture risk and therapy is usually indicated based on age. Re-Screen 1-2 years. NOTE: T-SCORE=SD OF THE YOUNG ADULT MEAN. [facility], , 11/30/2024 3:12 PM
== END | disposition home or self-care (01) ==
LOC: RADMAMWWP 14:08
PROVIDERS: ATTEND Internal Medicine
DX: Z12.31 Encounter for screening mammogram for malignant neoplasm of breast (principal); R92.333 Mammographic heterogeneous density, bilateral breasts; Z78.0 Asymptomatic menopausal state; Z92.0 Personal history of contraception; M81.0 Age-related osteoporosis without current pathological fracture
CPT/HCPCS: 77067; 77080

== ENCOUNTER → 2024-12-10 | Outpatient (CLI) | payer BC ==
--- NOTE | 2024-12-10 15:29 | MM ---
Reason for Exam: Additional evaluation requested from abnormal screening. Last screening mammogram was performed less than 1 month ago. Patient History: Menarche at age 13. First Full-Term at age 28. Postmenopausal. Patient has history of breast feeding. Patient used Hormonal Contraceptives for 10 years. 10/25/2022, Benign MG stereo VAD BX RT on the right side. 2013, Benign Excisional Biopsy on the right side. Risk Values: Sofia 5 year model risk: 1.8%. NCI Lifetime model risk: 12.2%. Prior Study Comparison: 10/13/2022 Bilateral MG work up mamm w CAD [place], [facility]. 10/19/2023 Bilateral MG 3D diag mammo w/cad [place], [facility]. 11/30/2024 Bilateral MG screening mammo w CAD, [facility]. Tissue Density: Left: The breasts are heterogeneously dense, which may obscure small masses. Findings: Analyzed By CAD. No suspicious new mass persists on additional views. Overall Assessment: Negative, BI-RAD 1 Management: Screening Mammogram of both breasts in 1 year. Return to routine follow-up. Results were given to the patient verbally at the time of exam. Patient should continue monthly self-breast exams. A clinical breast exam by your physician is recommended on an annual basis. This exam should not preclude additional follow-up of suspicious palpable abnormalities. Note on Sofia scores and lifetime risk: 1. A Sofia score greater than 3% is considered moderate risk. If this is the case, consider specialist referral to assess eligibility for a risk reducing agent. 2. If overall lifetime risk for the development of breast cancer is 20% or higher, the patient may qualify for future screening with alternating mammogram and breast MRI. [facility], , 12/10/2024 3:26 PM. Electronically signed and approved by: Carter Lee M.D.
== END | disposition home or self-care (01) ==
LOC: RADMAMWWP 15:06
PROVIDERS: ATTEND Internal Medicine
DX: R92.8 Other abnormal and inconclusive findings on diagnostic imaging of breast (principal); R92.332 Mammographic heterogeneous density, left breast; Z78.0 Asymptomatic menopausal state; Z92.0 Personal history of contraception
CPT/HCPCS: 77061; 77065

== ENCOUNTER → 2025-01-14 | Outpatient (CLI) | payer BC ==
[2025-01-14 12:36] LABS: African American GFR (CKD) 54 (>60 ml/min/1.73 sqM); Blood Urea Nitrogen 24 mg/dL (7-17); Non-African American GFR(CKD) 47 (>60 ml/min/1.73 sqM)
--- NOTE | 2025-01-14 13:49 | CT ---
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 CONTRAST: CT scan of the chest, abdomen and pelvis is performed with Oral Contrast and with IV Contrast, patien t injected with 80 ml mL of Isovue 300. FINDINGS: CT chest: There is no change in the volume loss in the right upper lobe. There is no change in the broad bandli ke opacity with bronchiectasis in the right lung apex and no change in the partially consolidative an d groundglass opacity in the right upper lobe posteriorly with bronchiectasis and adjacent pleural th ickening There are a few scattered reticular densities in the left lung which are stable. No new lung nodule o r mass. There is no pleural effusion or pneumothorax.. The great vessels and chest are normal there is no mediastinal, hilar or axillary adenopathy. No focal osseous lesions are seen. CT abdomen and pelvis: Gallbladder is normal without distention, pericholecystic fluid, wall thickening or gallstone. There is no biliary ductal dilatation. There is no focal mass or organomegaly involving the liver, pancreas, spleen or adrenal glands.. There is no solid renal mass or hydronephrosis. There is no retroperitoneal adenopathy or hemorrhage in the caliber of the abdominal aorta is normal. There is an IVC filter which appears to be a normal position and orientation within the IVC. The bowel loops are normal in caliber and there is no dilatation or obstruction. No inflammatory agustin ges identified in the bowel wall and mesentery. There is no free intracranial air or fluid. There is no pelvic mass or adenopathy. There is no free fluid within the pelvis. No focal osseous lesions are seen. Soft tissue the abdomen and pelvis are normal. IMPRESSION: 1. Stable right upper lobe volume loss and stable lung densities with bronchiectasis as described abo ve. 2. No evidence of metastatic disease within the abdomen or pelvis. [facility], , 01/14/2025 1:46 PM
== END | disposition home or self-care (01) ==
LOC: RADCTMAIN 11:34
PROVIDERS: ATTEND Internal Medicine Hematology & Oncology
DX: C91.10 Chronic lymphocytic leukemia of B-cell type not having achieved remission (principal); C4A Merkel cell carcinoma; E11.9 Type 2 diabetes mellitus without complications; J47.9 Bronchiectasis, uncomplicated; Z71.3 Dietary counseling and surveillance
CPT/HCPCS: 82565; 84520; 71260; 74177; 36415; Q9967